=== PATIENT | female | born 1945 | race Caucasian/White ===

== ENCOUNTER 2017-10-09 15:57 | Inpatient (IN) | payer MEDICARE, MEDICAID ==
[2017-10-09 17:00] LABS: % BASOPHILS 0.7 % (0.0-2.0); % LYMPHOCYTES 21.7 % (20.0-50.0); % MONOCYTES 10.1 % (2.0-10.0); % NEUTROPHILS 64.5 % (40.0-80.0); BASOPHILE ABSOLUTE 0.1 Th/cumm (0-0.2); EOSINOPHILE ABSOLUTE 0.2 Th/cmm (0.1-0.4); HEMATOCRIT 39.1 % (41.0-60); HEMOGLOBIN 13.5 gm/dL (12-16); LYMPHOCYTE ABSOLUTE 1.6 Th/cmm (1.5-3.0); MEAN CELL VOLUME 92.9 fl (81-100); MEAN CORPUSCULAR HEMOGLOBIN 32.1 pg (27.0-31.0); MEAN CORPUSCULAR HGB CONC 34.5 pg (28.0-36.0); MEAN PLATELET VOLUME 8.4 fl; MONOCYTE ABSOLUTE 0.7 Th/cmm (0.3-1.0); NEUTROPHILE ABSOLUTE 4.6 Th/cmm (1.8-8.0); PLATELET COUNT 270 Th/cmm (150-400); RED BLOOD COUNT 4.21 Mil/cmm (3.80-5.20); RED CELL DISTRIBUTION WIDTH 13.4 % (11.5-20.0); WHITE BLOOD COUNT 7.2 Th/cmm (4.8-10.8)
[2017-10-09 17:04] LABS: ACETAMINOPHEN < 10.0 ug/mL (10.0-30.0); ALB/GLOB RATIO 1.5 (1.0-1.8); ALBUMIN 4.3 gm/dL (3.7-5.3); ALKALINE PHOSPHATASE 66 U/L (34-104); ANION GAP 11.5 (7.0-16.0); BILIRUBIN,TOTAL 0.5 mg/dL (0.3-1.0); BUN - UREA NITROGEN 44 mg/dL (7-25); CALCIUM SERUM 9.5 mg/dL (8.6-10.3); CARBON DIOXIDE 25.7 mEq/L (21.0-31.0); CHLORIDE 105 mEq/L (98-107); CHOLESTEROL 164 mg/dL (<200); CREATININE - SERUM 1.4 mg/dL (0.6-1.2); GLUCOSE 100 mg/dL (70-105); HDL -HIGH DENSITY LIPOPROTEIN 66 mg/dL (23-92); POTASSIUM SERUM 4.2 mEq/L (3.5-5.1); SALICYLATES (ASPIRIN) < 25.0 mg/L (30.0-100.0); SGOT 12 U/L (13-39); SGPT/ALT 5 U/L (7-52); SODIUM SERUM 138 mEq/L (136-145); TOTAL PROTEIN,SERUM 7.1 gm/dL (6.0-8.3); TRIGLYCERIDES 223 mg/dL (<150)
[2017-10-09 17:13] LABS: URINE MICROSCOPIC INDICATED? YES; URINE SOURCE CLEAN C
[2017-10-09 17:15] LABS: URINE BILIRUBIN NEGATIVE (NEGATIVE); URINE BLOOD NEGATIVE (NEGATIVE); URINE GLUCOSE (UA) NEGATIVE (NEGATIVE); URINE KETONE NEGATIVE (NEGATIVE); URINE LEUKOCYTE ESTERASE NEGATIVE (NEGATIVE); URINE NITRATE NEGATIVE (NEGATIVE); URINE PROTEIN TRACE mg/dL (NEGATIVE); URINE UROBILINOGEN 0.2 E.U./dL (0.2 - 1.0)
[2017-10-09 17:19] LABS: URINE CLARITY HAZY (CLEAR); URINE COLOR YELLOW
[2017-10-09 17:34] LABS: URINE BACTERIA 1+ /hpf (NONE SEEN); URINE EPITHELIAL CELLS MODERATE /lpf (FEW)
[2017-10-09 17:35] LABS: URINE YEAST FEW /hpf (NONE SEEN)
[2017-10-09 17:36] LABS: AMPHETAMINE URINE NEGATIVE (NEGATIVE); BARBITURATES URINE NEGATIVE (NEGATIVE); BENZODIAZEPINES QUAL URINE NEGATIVE (NEGATIVE); CANNABINOID THC NEGATIVE (NEGATIVE); COCAINE METABOLITE QUAL URINE NEGATIVE (NEGATIVE); METHADONE URINE NEGATIVE (NEGATIVE); METHAMPHETAMINES QUAL URINE NEGATIVE (NEGATIVE); OPIATES (MORPHINE) QUAL. URINE POSITIVE (NEGATIVE); PHENCYCLIDINE (PCP) URINE NEGATIVE (NEGATIVE); TRICYCLICS (TCA) QUAL. URINE NEGATIVE (NEGATIVE)
[2017-10-09] MEDS ORDERED: Hydrocodone/APAP 5mg/325mg Tab ONE (17:53)
[2017-10-09] MEDS ORDERED: Hydrocodone/APAP 5mg/325mg Tab PO ONE (17:54)
--- NOTE | 2017-10-09 18:01 | ED Physician Chart ---
ED Chief Complaint/HPI - Patient Information Date Seen:: 10/09/17 Time Seen:: 16:15 Chief Complaint:: Agitation History of Present Illness:: onset x 3 days of agitation and aggressive behavior; no report of SIs, H/As, neck pain, C/P, SOB, Abd. Pain, A/N/V/D/C, fever, chills, or urinary s/s Allergies:: Allergies Allergy/AdvReac Type Severity Reaction Status Date / Time No Known Allergies Allergy Verified 10/09/17 16:16 Vitals:: Vital Signs - 8 hr 10/09/17 16:17 Temp 98.3 F HR 60 RR 17 BP 181/64 O2 Sat % 94 Historian:: Patient, EMS Review:: Nurse's Note Reviewed, Old Chart Reviewed, EMS run form Reviewed ED Review of Systems - Review of Systems General/Constitutional: No fever, No chills, No weight loss, No weakness, No diaphoresis, No edema, No loss of appetite Skin: No skin lesions, No rash, No bruising Head: No headache, No light-headedness Eyes: No loss of vision, No pain, No diplopia ENT: No earache, No nasal drainage, No sore throat, No tinnitus Neck: No neck pain, No swelling, No thyromegaly, No stiffness, No mass noted Cardio Vascular: No chest pain, No palpitations, No PND, No orthopnea, No edema Pulmonary: No SOB, No cough, No sputum, No wheezing GI: No nausea, No vomiting, No diarrhea, No pain, No melena, No hematochezia, No constipation, No hematemesis G/U: No dysuria, No frequency, No hematuria, No nacturia Agronomy Supervisor: No vaginal discharge, No abnormal vaginal bleed, No contraction Musculoskeletal: No bone or joint pain, No back pain, No muscle pain Endocrine: No polyuria, No polydipsia Psychiatric: Prior psych history, Depression, Anxiety, No suicidal ideation, No homicidal ideation, No auditory hallucination, No visual hallucination Hematopoietic: No bruising, No lymphadenopathy Allergic/Immuno: No urticaria, No angioedema Neurological: No syncope, No focal symptoms, No weakness, No paresthesia, No headache, No seizure, No dizziness, No confusion, No vertigo ED Past Medical History - Past Medical History Obtainable: Yes Past Medical History: HTN, Dyslipidemia, Arthritis Family History: HTN Social History: Non Smoker, No Alcohol, No Drug Use, Single, Care Facility Surgical History: None Psychiatricy History: Depression, Bipolar Medication: Reviewed ED Physical Exam - Physical Examination General/Constitutional: Awake, Well-developed, well-nourished, Alert, No distress, GCS 15, Non-toxic appearing, Ambulatory Head: Atraumatic Eyes: Lids, conjuctiva normal, PERRL, EOMI Skin: Nl inspection, No rash, No skin lesions, No ecchymosis, Well hydrated, No lymphadenopathy ENMT: External ears, nose nl, TM canals nl, Nasal exam nl, Lips, teeth, gums nl , Oropharynx nl, Tonsils nl Neck: Nontender, Full ROM w/o pain, No JVD, No nuchal rigidity, No bruit, No mass, No stridor Respiratory: Nl effort/Exclusion, Clear to Auscultation, No Wheeze/Rhonchi/Rales Cardio Vascular: RRR, No murmur, gallop, rubs, NL S1 S2, Carotid/Femoral/Distal pulses equal bilaterally GI: No tenderness/rebounding/guarding, No organomegaly, No hernia, Normal BS's, Nondistended, No mass/bruits, No McBurney tenderness : No CVA tenderness Extremities: No tenderness or effusion, Full ROM, normal strength in all extremities, No edema, Normal digits & nails Neuro/Psych: Alert/oriented, DTR's symmetric, Normal sensory exam, Normal motor strength, Judgement/insight normal, Mood normal, Normal gait, No focal deficits Other Neuro/Psych comments:: + psychomotor agitation; Mood/Affect: Labile; no SIs Misc: Normal back, No paraspinal tenderness ED Labs/Radiology/EKG Results - Lab Results Results: Laboratory Tests 10/09/17 10/09/17 10/09/17 16:40 16:40 16:40 WBC 7.2 RBC 4.21 Hgb 13.5 Hct 39.1 L MCV 92.9 MCH 32.1 H MCHC Differential 34.5 RDW 13.4 Plt Count 270 MPV 8.4 Neutrophils % 64.5 Lymphocytes % 21.7 Monocytes % 10.1 H Eosinophils % 3.0 Basophils % 0.7 Sodium 138 Potassium 4.2 Chloride 105 Carbon Dioxide 25.7 Anion Gap 11.5 BUN 44 H Creatinine 1.4 H Est GFR ( Amer) TNP Est GFR (Non-Af Amer) TNP BUN/Creatinine Ratio 31.4 Glucose 100 Calcium 9.5 Total Bilirubin 0.5 AST 12 L ALT 5 L Alkaline Phosphatase 66 Total Protein 7.1 Albumin 4.3 Globulin 2.8 Albumin/Globulin Ratio 1.5 Triglycerides 223 H Cholesterol 164 LDL Cholesterol Direct 102 HDL Cholesterol 66 TSH 0.66 Urine Source Urine Color Urine Clarity Urine pH Ur Specific [place] Urine Protein Urine Glucose (UA) Urine Ketones Urine Blood Urine Nitrate Urine Bilirubin Urine Urobilinogen Ur Leukocyte Esterase Urine RBC Urine WBC Ur Epithelial Cells Urine Bacteria Urine Yeast Salicylates < 25.0 L Urine Opiates Screen Urine Methadone Screen Acetaminophen < 10.0 L Ur Barbiturates Screen Ur Tricyclics Screen Ur Phencyclidine Scrn Amphetamines Screen U Methamphetamines Scrn U Benzodiazepines Scrn U Cocaine Metab Screen U Cannabinoids Screen Ethyl Alcohol < 10 10/09/17 10/09/17 17:00 17:00 WBC RBC Hgb Hct MCV MCH MCHC Differential RDW Plt Count MPV Neutrophils % Lymphocytes % Monocytes % Eosinophils % Basophils % Sodium Potassium Chloride Carbon Dioxide Anion Gap BUN Creatinine Est GFR ( Amer) Est GFR (Non-Af Amer) BUN/Creatinine Ratio Glucose Calcium Total Bilirubin AST ALT Alkaline Phosphatase Total Protein Albumin Globulin Albumin/Globulin Ratio Triglycerides Cholesterol LDL Cholesterol Direct HDL Cholesterol TSH Urine Source CLEAN C Urine Color YELLOW Urine Clarity HAZY Urine pH 6.0 Ur Specific [place] 1.020 Urine Protein TRACE Urine Glucose (UA) NEGATIVE Urine Ketones NEGATIVE Urine Blood NEGATIVE Urine Nitrate NEGATIVE Urine Bilirubin NEGATIVE Urine Urobilinogen 0.2 Ur Leukocyte Esterase NEGATIVE Urine RBC 2-5 Urine WBC 6-10 H Ur Epithelial Cells MODERATE Urine Bacteria 1+ H Urine Yeast FEW H Salicylates Urine Opiates Screen POSITIVE H Urine Methadone Screen NEGATIVE Acetaminophen Ur Barbiturates Screen NEGATIVE Ur Tricyclics Screen NEGATIVE Ur Phencyclidine Scrn NEGATIVE Amphetamines Screen NEGATIVE U Methamphetamines Scrn NEGATIVE U Benzodiazepines Scrn NEGATIVE U Cocaine Metab Screen NEGATIVE U Cannabinoids Screen NEGATIVE Ethyl Alcohol Comments:: unremarkable - EKG Interpretations EKG Time:: 16:31 Rate & Rhythm: 66; NSR; PACs Comments:: T-Wave Inversions in I and AVL; probably old; non-specific st-t changes; no acute changes ED Septic Shock - . Is Septic Shock (SBP<90, OR Lactate>4 mmol\L) present?: No - <6hrs of presentation: Vital Signs: Vital Signs - 8 hr 10/09/17 16:17 Temp 98.3 F HR 60 RR 17 BP 181/64 O2 Sat % 94 ED Reassessment (Disposition) - Reassessment Reassessment Condition:: Improved - Diagnosis Diagnosis:: Old Myocardial Ischemia; Medically Cleared; Bipolar Disorder; Agitation - Aftercare/Follow up Instructions Aftercare/Follow-Up Instructions:: Counseled pt regarding lab results/diagnosis & need follow up, Counseled pt & family regarding lab results/diagnosis & need follow up - Patient Disposition Discharge/Transfer:: Acute Care w/in this hosp Admitted to:: [facility] Condition at Disposition:: Stable, Improved ED Discharge Plan - Patient Disposition Instructions: Psychosis
[2017-10-09] MEDS ORDERED: Magnesium Hydroxide (MOM) 30 mL UDC PO PRN (21:07)
[2017-10-09] MEDS: Hydrocodone/APAP 5mg/325mg Tab PO PRN (22:35)
[2017-10-09 23:16] VITALS: BP 149/70
[2017-10-10] MEDS: Hydrocodone/APAP 5mg/325mg Tab PO PRN ×4 (07:02→20:28)
[2017-10-10] MEDS: Oxybutynin Chloride 5 mg ER Tab PO SCH (11:02)
[2017-10-10] MEDS: Aspirin 81mg Chewable Tab PO SCH (11:06)
[2017-10-10 12:40] LABS: A1C % 5.9 % (4.0-6.0)
--- NOTE | 2017-10-10 18:50 | Consultation ---
DATE OF CONSULTATION: 10/09/2017 HISTORY OF PRESENT ILLNESS: The patient is a 72-year-old female with a past medical history significant for hypertension, coronary artery disease, peptic ulcer disease, gastritis, arthritis, osteoporosis, rheumatoid arthritis, chronic kidney disease stage 3, hyperlipidemia, possible COPD and history of alcohol abuse. SOCIAL HISTORY: Prior history of smoking as well as alcohol abuse. FAMILY HISTORY: Not available. OBSTETRIC HISTORY: P3+0, 2 live children. SURGICAL HISTORY: Multiple surgeries involving the low back and section. PHYSICAL EXAMINATION: GENERAL: Average female in no obvious respiratory distress. VITAL SIGNS: Include a blood pressure 140/80, heart rate 80, respiration rate of 18. SKIN: Show no obvious cellulitis. HEENT: Normal conjunctivae. NECK: Supple. LUNGS: Shows occasional rhonchi, occasional crepitation, no bronchial breathing. HEART: First and second present. ABDOMEN: Soft, minimal epigastric tenderness. Bowel sounds appeared good. EXTREMITIES: Show arthritis. NEUROLOGIC: The patient has no focal motor deficit. LABORATORY DATA: Include white count 7.2, hemoglobin 13.5, hematocrit 39.1, platelet count of 270. Sodium 138, potassium 4.2, chloride 105, bicarbonate 25.7, BUN 44, creatinine 1.4, glucose of 100. LFTs slightly unremarkable. MEDICAL DIAGNOSES: Include COPD, hypertension, coronary artery disease, peptic ulcer disease, gastritis, arthritis, osteoporosis, rheumatoid arthritis, chronic kidney stage 3, hyperlipidemia, and alcoholism. CURRENT MEDICATIONS: Include Tylenol, Vici, aspirin, Lipitor, vitamin D, Colace, milk of magnesia, and sotalol. Thank you Dr. Pham for letting me see your patient. JOB# [id number]
[2017-10-10] MEDS: Atorvastatin Calcium 10 MG TAB PO SCH (20:28)
--- NOTE | 2017-10-11 01:24 | Psychosocial Evaluation ---
DATE OF SERVICE: 10/10/2017 IDENTIFYING DATA: The patient is a 72-year-old woman, resident of [facility]. Information obtained directly interviewing the patient as well as reviewing the admission papers. JUSTIFICATION FOR HOSPITALIZATION: The patient is admitted here for acute agitation, disruptive behavior, and confusion. CHIEF COMPLAINT: "I am okay here, this place is good." HISTORY OF PRESENT ILLNESS: This is the first psychiatric hospitalization to the [facility] for this patient who is resident of the [facility] and the patient is reported to have been getting out of control, screaming, and yelling. The patient could not be contained at a lower level of care and hence the patient has been transferred over here for further stabilization. PAST PSYCHIATRIC HISTORY: Details of her prior psychiatric hospitalizations are not available. MEDICAL HISTORY AND PHYSICAL EXAMINATION: As requested done by Dr. Lala. LEGAL PROBLEMS: None at this time. PHYSICAL OR SEXUAL ABUSE HISTORY: None. SUBSTANCE ABUSE HISTORY: None. SOCIAL HISTORY: The patient is a resident of the [facility]. MENTAL STATUS EXAMINATION: The patient is a 72-year-old, looking her stated age, wheelchair bound, superficially cooperative. Eye contact is poor. Mood is irritable. Affect is constricted. 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 The patient has been screaming and yelling, and has been getting upset. The patient has been treated for depression with citalopram, which she is getting 20 mg on a daily basis. The patient is stating that the medication has been of some help. The patient's sleep is noted to be poor. Appetite is noted to be fair. The patient has been compliant with the medications. The patient is alert and oriented x 3. 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 The patient is motivated for treatment. The patient has been really getting out of control, but the patient is not presenting with any threats at this time. The patient is stating that the people are nice in here and she has been able to get along. DIAGNOSTIC IMPRESSION: Major depressive disorder, recurrent and severe. IMMEDIATE TREATMENT PLAN: The patient is going to be observed and the patient is going to be continued on citalopram, and the patient is going to be followed up with the supportive therapy. Once the patient is stabilized, the patient is going to be discharged to [facility] to be followed up on an outpatient basis. JOB# [id number]
[2017-10-11] MEDS: Hydrocodone/APAP 5mg/325mg Tab PO PRN ×5 (05:37→23:58)
[2017-10-11] MEDS: Oxybutynin Chloride 5 mg ER Tab PO SCH (09:19)
[2017-10-11] MEDS: Aspirin 81mg Chewable Tab PO SCH (09:19)
[2017-10-11] MEDS: Atorvastatin Calcium 10 MG TAB PO SCH (21:43)
--- NOTE | 2017-10-12 02:04 | Progress Notes ---
DATE: 10/11/2017 PSYCHIATRIC PROGRESS NOTE SUBJECTIVE: Staff was spoken to. The patient is interviewed. Mood is noted to be depressed. Affect is constricted. Insight and judgment at this time are noted to be still impaired. Impulse control is noted to be limited. The patient has been pacing most of the time. Coping skills are noted to be extremely poor. The patient is currently on citalopram 10 mg and has been able to tolerate the medication. The patient has been complaining of pain. ASSESSMENT: The patient is still depressed. PLAN: To continue the patient with the current medications and encouraged the patient to verbalize the concerns rather than to act out. JOB# [id number]
[2017-10-12] MEDS: Hydrocodone/APAP 5mg/325mg Tab PO PRN ×5 (05:35→20:59)
[2017-10-12] MEDS: Oxybutynin Chloride 5 mg ER Tab PO SCH (09:24)
[2017-10-12] MEDS: Aspirin 81mg Chewable Tab PO SCH (09:26)
--- NOTE | 2017-10-12 13:30 | Progress Notes ---
DATE: 10/12/2017 Staff was spoken to. The patient is interviewed. Mood is noted to be irritable. Affect is constricted. Insight and judgment at this time are noted to be still impaired. Impulse control seems to be poor. The patient is still isolative and withdrawn. The patient is able to tolerate the Celexa that is being given at 10 mg. ASSESSMENT: The patient is still depressed and having poor coping skills. PLAN: To continue patient with the supportive therapy and encouraged the patient to verbalize the concerns rather than to act out. JOB# [id number]
[2017-10-12] MEDS: Atorvastatin Calcium 10 MG TAB PO SCH (20:59)
[2017-10-13] MEDS: Hydrocodone/APAP 5mg/325mg Tab PO PRN ×5 (02:07→21:29)
[2017-10-13] MEDS: Aspirin 81mg Chewable Tab PO SCH (08:40)
[2017-10-13] MEDS: Oxybutynin Chloride 5 mg ER Tab PO SCH (08:41)
--- NOTE | 2017-10-13 19:23 | Progress Notes ---
DATE: 10/13/2017 SUBJECTIVE: Staff was spoken to. The patient is interviewed. Mood is noted to be irritable. Affect is constricted. Coping skills are noted to still poor. The patient is pacing on the unit and is very argumentative that she should be discharged. No side effects to the medications are noted. The patient has been having difficult time to cope with the stress. The patient is currently on antidepressant Celexa and has been able to tolerate it. ASSESSMENT: The patient is still psychotic. PLAN: To continue the patient with the supportive therapy and followup. JOB# [id number]
[2017-10-13] MEDS: Atorvastatin Calcium 10 MG TAB PO SCH (21:28)
[2017-10-14] MEDS: Hydrocodone/APAP 5mg/325mg Tab PO PRN ×4 (04:20→19:30)
[2017-10-14] MEDS: Oxybutynin Chloride 5 mg ER Tab PO SCH (08:39)
[2017-10-14] MEDS: Aspirin 81mg Chewable Tab PO SCH (08:40)
[2017-10-14] MEDS: Atorvastatin Calcium 10 MG TAB PO SCH (20:07)
--- NOTE | 2017-10-14 22:05 | Progress Notes ---
DATE: 10/14/2017 PSYCHIATRIC PROGRESS NOTE SUBJECTIVE: Staff was spoken to. The patient is interviewed. Mood is irritable. Affect is constricted. Coping skills at this time are noted to be very poor. The patient is still isolative and withdrawn. The patient has been complaining of poor sleep. Appetite seems to be fair today. No side effects to the citalopram are noted. In view of the depression, it is decided to increase the dose on the citalopram to 20 mg and encouraged the patient to verbalize the concerns rather than to act out. Please note that the patient is not ready to be discharged to a lower level of care yet because of her depression. JOB# [id number]
[2017-10-15] MEDS: Hydrocodone/APAP 5mg/325mg Tab PO PRN ×5 (03:27→21:36)
[2017-10-15] MEDS: Oxybutynin Chloride 5 mg ER Tab PO SCH (08:12)
[2017-10-15] MEDS: Aspirin 81mg Chewable Tab PO SCH (08:12)
--- NOTE | 2017-10-15 15:56 | Progress Notes ---
DATE: 10/15/2017 SUBJECTIVE: Staff was spoken to. The patient is interviewed. Mood is noted to be irritable. Affect is constricted. The patient is still depressed. Coping skills are noted to be very poor. No side effects to the medications are noted. The patient is isolative and withdrawn. The patient is having suicidal ideation, but no homicidal ideation is noted. ASSESSMENT: The patient is still very depressed. PLAN: To continue the patient with the current medications. I encouraged the patient to verbalize the concerns rather than to act out. JOB# [id number]
[2017-10-15] MEDS: Atorvastatin Calcium 10 MG TAB PO SCH (20:27)
[2017-10-16] MEDS: Hydrocodone/APAP 5mg/325mg Tab PO PRN ×4 (02:40→19:36)
[2017-10-16] MEDS: Oxybutynin Chloride 5 mg ER Tab PO SCH (08:57)
[2017-10-16] MEDS: Aspirin 81mg Chewable Tab PO SCH (08:57)
--- NOTE | 2017-10-16 20:59 | Progress Notes ---
DATE: 10/16/2017 PSYCHIATRIC PROGRESS NOTE SUBJECTIVE: Staff was spoken to. The patient is interviewed. Mood is noted to be irritable. Affect is constricted. Coping skills are noted to be very poor. The patient has been still depressed, isolative and withdrawn. The patient is stating that she does not need any ____ anywhere and she needs to go home. manager retirement has been informed to verify whether the patient has her own place. The patient at this time is complaining. Her sleep is noted to be poor. Appetite is noted to be fair. The patient has been able to tolerate the Celexa, which is given 20 mg. ASSESSMENT: The patient is still depressed. PLAN: Continue the patient with the current medications and follow. JOB# [id number]
[2017-10-16] MEDS: Atorvastatin Calcium 10 MG TAB PO SCH (21:24)
[2017-10-17] MEDS: Hydrocodone/APAP 5mg/325mg Tab PO PRN ×4 (00:41→18:51)
[2017-10-17] MEDS: Aspirin 81mg Chewable Tab PO SCH (09:19)
[2017-10-17] MEDS: Oxybutynin Chloride 5 mg ER Tab PO SCH (09:20)
--- NOTE | 2017-10-17 09:41 | Progress Notes ---
DATE: 10/17/2017 SUBJECTIVE: Staff was spoken to. The patient is interviewed. Mood is noted to be anxious. The patient's coping skills are noted to be still poor. The patient is isolative and withdrawn. No side effects to the medications are noted. The patient has been isolative and withdrawn. Suicidal ideation is resolving. The patient is currently on citalopram 20 mg and has been able to tolerate the medication. ASSESSMENT: The patient is still depressed. PLAN: To continue the patient with the supportive therapy, encouraged the patient to verbalize the concerns rather than to act out. JOB# [id number]
[2017-10-17] MEDS: Atorvastatin Calcium 10 MG TAB PO SCH (20:58)
[2017-10-18] MEDS: Hydrocodone/APAP 5mg/325mg Tab PO PRN ×5 (00:25→20:40)
[2017-10-18] MEDS: Oxybutynin Chloride 5 mg ER Tab PO SCH (08:29)
[2017-10-18] MEDS: Aspirin 81mg Chewable Tab PO SCH (08:30)
[2017-10-18] MEDS: Atorvastatin Calcium 10 MG TAB PO SCH (20:40)
--- NOTE | 2017-10-18 21:37 | Progress Notes ---
DATE: 10/18/2017 SUBJECTIVE: Staff was spoken to. Patient was interviewed. Mood is noted to be depressed. The patient is isolative and withdrawn. The patient is focused on leaving the place. The patient has no insight. Coping is noted to be extremely poor. The patient is pacing on the unit. Personal hygiene continues to be extremely poor. ASSESSMENT: The patient is still depressed. PLAN: To continue the patient with citalopram and encouraged the patient to verbalize the concerns rather than to act out. JOB# [id number]
[2017-10-19] MEDS: Hydrocodone/APAP 5mg/325mg Tab PO PRN ×4 (03:54→18:45)
[2017-10-19] MEDS: Oxybutynin Chloride 5 mg ER Tab PO SCH (08:15)
[2017-10-19] MEDS: Aspirin 81mg Chewable Tab PO SCH (08:15)
--- NOTE | 2017-10-19 15:40 | Progress Notes ---
DATE: 10/19/2017 SUBJECTIVE: Staff was spoken to. The patient is interviewed. The patient is still isolative and withdrawn. Insight and judgment are noted to be still impaired. Impulse control seems to be poor. Coping skills are also noted to be very poor. The patient has been having difficult time to cope with the stress. No side effects to the medications are noted. The patient is currently on Celexa 20 mg and has been able to tolerate the medication. ASSESSMENT: The patient is still depressed. PLAN: To continue the patient with the supportive therapy and followup. JOB# [id number]
[2017-10-19] MEDS: Atorvastatin Calcium 10 MG TAB PO SCH (21:09)
[2017-10-20] MEDS: Hydrocodone/APAP 5mg/325mg Tab PO PRN ×5 (00:31→22:12)
[2017-10-20] MEDS: Aspirin 81mg Chewable Tab PO SCH (09:27)
[2017-10-20] MEDS: Oxybutynin Chloride 5 mg ER Tab PO SCH (09:27)
[2017-10-20] MEDS: Atorvastatin Calcium 10 MG TAB PO SCH (20:31)
--- NOTE | 2017-10-20 23:08 | Progress Notes ---
DATE: 10/20/2017 Staff was spoken to. The patient was interviewed. Mood is noted to be irritable. Affect is constricted. The patient is stating that she has been trying her best to get into the groups and she needs to go to pay her bills. The patient is currently on citalopram and has been able to tolerate the medication. Depression is a major concern and is not ready to be discharged to a lower level of care yet. JOB# [id number]
[2017-10-21] MEDS: Hydrocodone/APAP 5mg/325mg Tab PO PRN ×5 (04:07→22:27)
[2017-10-21] MEDS: Aspirin 81mg Chewable Tab PO SCH (08:52)
[2017-10-21] MEDS: Oxybutynin Chloride 5 mg ER Tab PO SCH (08:52)
--- NOTE | 2017-10-21 13:57 | Progress Notes ---
DATE: 10/21/2017 SUBJECTIVE: Staff was spoken to. The patient is interviewed. Mood is irritable. Affect is constricted. The patient is still depressed. Coping skills are noted to be poor. Sleep and appetite are also noted to be very poor. No side effects to medications are noted. The patient is isolated and withdrawn. Personal hygiene continues to be very poor. ASSESSMENT: The patient is still depressed. PLAN: To continue to the patient with the supportive therapy and followup. [facility]# [id number]
[2017-10-21] MEDS: Atorvastatin Calcium 10 MG TAB PO SCH (20:39)
[2017-10-22] MEDS: Hydrocodone/APAP 5mg/325mg Tab PO PRN ×4 (04:39→20:44)
[2017-10-22] MEDS: Oxybutynin Chloride 5 mg ER Tab PO SCH (09:32)
[2017-10-22] MEDS: Aspirin 81mg Chewable Tab PO SCH (09:32)
--- NOTE | 2017-10-22 13:25 | Progress Notes ---
DATE: 10/22/2017 SUBJECTIVE: Staff was spoken to. The patient is interviewed. Mood is noted to be less irritable. Affect is appropriate today. The patient is stating that she has been trying to get to her place. integration manager has been informed about the patient's desire to go home and that they are going to be verifying whether the patient has a place to go or not. The patient is currently on antidepressant medication, citalopram 20 mg and has been able to tolerate the medication, but the patient has been focused on her pain medications today. ASSESSMENT: The patient is still depressed. PLAN: To continue the patient with supportive therapy and followup. JOB# [id number]
[2017-10-22] MEDS: Atorvastatin Calcium 10 MG TAB PO SCH (20:45)
[2017-10-23] MEDS: Hydrocodone/APAP 5mg/325mg Tab PO PRN ×4 (04:08→19:30)
[2017-10-23] MEDS: Oxybutynin Chloride 5 mg ER Tab PO SCH (09:42)
[2017-10-23] MEDS: Aspirin 81mg Chewable Tab PO SCH (09:45)
[2017-10-23] MEDS: Atorvastatin Calcium 10 MG TAB PO SCH (20:41)
--- NOTE | 2017-10-24 01:54 | Progress Notes ---
DATE: 10/23/2017 SUBJECTIVE: Staff was spoken to. The patient is interviewed. Mood is noted to be anxious. The patient is stating that she has her own place to live and she should not be in here. Coping skills are noted to be very poor. The case management social worker is mentioning that the patient has no place to live and they are looking for placement for this patient. No side effects to the medications are noted at this time. The patient is on Celexa and is able to tolerate the medication. ASSESSMENT: The patient is still depressed and awaiting placement. PLAN: To continue the patient with the supportive therapy and followup. JOB# [id number]
[2017-10-24] MEDS: Hydrocodone/APAP 5mg/325mg Tab PO PRN ×4 (03:33→19:35)
[2017-10-24] MEDS: Aspirin 81mg Chewable Tab PO SCH (08:41)
[2017-10-24] MEDS: Oxybutynin Chloride 5 mg ER Tab PO SCH (08:41)
[2017-10-24] MEDS: Atorvastatin Calcium 10 MG TAB PO SCH (20:05)
--- NOTE | 2017-10-24 23:33 | Progress Notes ---
DATE: 10/24/2017 SUBJECTIVE: Staff was spoken to. The patient is interviewed. Mood is noted to be irritable. Affect is constricted. The patient is stating that she has a place to go and she has a caregiver and then I don't need to worry about it. manager field sales has been mentioning, however, they have been looking for placement for this patient and no placement is available yet. ASSESSMENT: The patient is still depressed. PLAN: To continue the patient with the supportive therapy and followup. JOB# [id number]
[2017-10-25] MEDS: Hydrocodone/APAP 5mg/325mg Tab PO PRN ×3 (00:55→10:04)
[2017-10-25] MEDS: Oxybutynin Chloride 5 mg ER Tab PO SCH (08:33)
[2017-10-25] MEDS: Aspirin 81mg Chewable Tab PO SCH (08:33)
--- NOTE | 2017-10-25 18:21 | Progress Notes ---
DATE: 10/25/2017 PSYCHIATRIC PROGRESS NOTE SUBJECTIVE: Staff was spoken to. The patient is interviewed. Mood is noted to be less irritable. Affect is appropriate. theater manager has finally been able to find a placement for this patient and the patient is going to be discharged to [place]. The patient is currently on citalopram and has been able to tolerate. ASSESSMENT: The patient is stabilizing, not suicidal. PLAN: To discharge the patient today for followup on outpatient basis. JOB# [id number]
--- NOTE | 2017-11-09 10:18 | Discharge Summary ---
DATE OF DISCHARGE: 10/25/2017 IDENTIFYING DATA: The patient is a 72-year-old woman, resident of [facility]. JUSTIFICATION OF HOSPITALIZATION: The patient is admitted for acute agitation and disruptive behavior and confusion. CHIEF COMPLAINT: "I am okay this place is good." DIAGNOSES AT THE TIME OF ADMISSION: AXIS I: Major depressive disorder, recurrent and severe. AXIS II: None. AXIS III DIAGNOSIS: As per Dr. Lala. HOSPITAL COURSE AND RESPONSE TO TREATMENT: Please refer the 10/10/2017 dictation done by me. Physical examination was done by Dr. Lala and is noted to be significant for multiple medical problems such as hypertension, coronary artery disease, peptic ulcer disease, gastritis, chronic kidney disease stage 3, hyperlipidemia and COPD. The patient has been closely monitored and encouraged to participate in the groups and verbalize the concerns. The patient has been started on the citalopram, which was given 20 mg and the patient has been encouraged to verbalize the concerns. The patient started fairly well and the depression started to resolve and the patient was discharged to [facility] with recommendation to be followed up by Dr. Norton. MENTAL STATUS EXAMINATION: At the time of discharge, patient's mood is anxious. Affect is appropriate. Not suicidal or homicidal. Insight and judgment are noted to be fair. Impulse control is also noted to be fair. DIAGNOSES AT THE TIME OF DISCHARGE: AXIS I: Major depressive disorder, recurrent and moderate. AXIS II: None. AXIS III: As per Dr. Lala. AFTERCARE PLAN: The patient is discharged to [place] for further followup. [facility]# [id number]
== END 2017-10-25 13:20 | DRG 885 ==
LOC: ER 15:57 → GERO 18:04
PROVIDERS: ADMIT Psychiatry & Neurology Psychiatry; ATTEND Psychiatry & Neurology Psychiatry
DX: F33.2 Major depressive disorder, recurrent severe without psychotic features (principal); J44.9 Chronic obstructive pulmonary disease, unspecified; M06.9 Rheumatoid arthritis, unspecified; I25.10 Atherosclerotic heart disease of native coronary artery without angina pectoris; K27.9 Peptic ulcer, site unspecified, unspecified as acute or chronic, without hemorrhage or perforation; M19.90 Unspecified osteoarthritis, unspecified site; M81.0 Age-related osteoporosis without current pathological fracture; I12.9 Hypertensive chronic kidney disease with stage 1 through stage 4 chronic kidney disease, or unspecified chronic kidney disease; N18.3 Chronic kidney disease, stage 3 (moderate); E78.5 Hyperlipidemia, unspecified; K29.70 Gastritis, unspecified, without bleeding; F10.20 Alcohol dependence, uncomplicated; Z82.49 Family history of ischemic heart disease and other diseases of the circulatory system; Z87.891 Personal history of nicotine dependence; I25.2 Old myocardial infarction
CPT/HCPCS: 36415-UA; 80053-TC; 80061-TC; 80307; 80320-TC; 80329-TC; 81001-TC; 82550-TC; 83036-90; 83880-TC; 84443-TC; 84484-TC; 85025-TC; 86592-TC; 90899; 93005; G0410; Z7610